=== PATIENT | female | born 1950 | race Caucasian/White ===

== ENCOUNTER → 2021-02-04 05:15 | Outpatient (CLI) | payer MEDICARE, SELFPAY ==
[2021-02-05 01:26] LABS: SARS-CoV-2 RNA PCR Negative
== END ==
PROVIDERS: PCP Emergency Medicine; Visit Provider Emergency Medicine
DX: Z20.822 Contact with and (suspected) exposure to COVID-19 (principal)
CPT/HCPCS: C9803; U0003; U0005